=== PATIENT | female | born 1985 | race Caucasian/White ===

== ENCOUNTER 2016-07-17 22:00 | Emergency (ER) | payer OTHER ==
[2016-07-17 23:40] LABS: ARTERIAL BLD GAS O2 SATURATION 86.7 % (94-98); ARTERIAL BLOOD GAS BASE EXCESS 27.5 mmol/L (-2.0-3.0); ARTERIAL BLOOD GAS HCO3 59.2 mmol/L (22-26); ARTERIAL BLOOD GAS pH 7.34 (7.35-7.45)
[2016-07-17 23:41] LABS: ARTERIAL BLOOD GAS PCO2 112.8 mmHg (32-45)
[2016-07-18 00:02] LABS: ALBUMIN 4.1 gm/dL (3.4-5.0); ALKALINE PHOSPHATASE 60 U/L (50-136); ALT/SGPT 45 U/L (3.5-33.9); AST/SGOT 44 U/L (7.04-26.96); BILIRUBIN,TOTAL 0.28 mg/dL (0.0-1.0); BLOOD UREA NITROGEN 13 mg/dL (7-18); CALCIUM 9.4 mg/dL (8.7-10.7); CREATINE KINASE 56 U/L (21-215); CREATININE < 0.5 mg/dL (0.6-1.3); GLUCOSE,RANDOM 125 mg/dL (70-99); POTASSIUM 4.3 mmol/L (3.5-5.1); SODIUM 143 mmol/L (136-145); TOTAL PROTEIN 6.8 gm/dL (6.4-8.2)
[2016-07-18 00:11] LABS: CARBON DIOXIDE > 50 mmol/L (21-32)
[2016-07-18 01:21] LABS: BASO % 0.1 % (0.1-1.2); EOS # 0.2 10_X3_uL (0.0-0.4); EOS % 2.4 % (0.7-5.8); GRAN # 7.2 10_X3_uL (1.6-6.1); GRAN % 83.8 % (34.0-71.1); HEMATOCRIT 42.4 % (34-45); HEMOGLOBIN 11.9 g/dL (11.2-15.7); LYMPH # 0.5 10_X3_uL (1.2-3.7); LYMPH % 5.5 % (19.3-51.7); MEAN CORPUSCULAR HEMOGLOBIN 30.2 pg (27.0-33.0); MEAN CORPUSCULAR HGB CONC 28.1 g/dL (32.0-36.0); MEAN CORPUSCULAR VOLUME 107.6 fL (79-95); MONO # 0.7 10_X3_uL (0.2-0.9); MONO % 8.2 % (4.7-12.5); PLATELET COUNT 109 x10_3/uL (182-369); RED BLOOD COUNT 3.94 x10_6/uL (3.9-5.2); RED CELL DISTRIBUTION WIDTH 13.7 % (11.7-14.4); WHITE BLOOD COUNT 8.6 x10_3/uL (4.0-10.0)
[2016-07-18 01:27] LABS: ARTERIAL BLD GAS O2 SATURATION 90.4 % (94-98); ARTERIAL BLOOD GAS BASE EXCESS 25.9 mmol/L (-2.0-3.0); ARTERIAL BLOOD GAS HCO3 56.9 mmol/L (22-26); ARTERIAL BLOOD GAS pH 7.34 (7.35-7.45)
[2016-07-18 01:28] LABS: ARTERIAL BLOOD GAS PCO2 108.4 mmHg (32-45)
== END 2016-07-18 05:28 | disposition short-term general hospital (02) ==
LOC: ER 22:00
PROVIDERS: Emergency Medicine
DX: R06.89 Other abnormalities of breathing (principal); J84.81 Lymphangioleiomyomatosis; R00.0 Tachycardia, unspecified; E11.9 Type 2 diabetes mellitus without complications; F17.210 Nicotine dependence, cigarettes, uncomplicated; Z88.6 Allergy status to analgesic agent; Z88.8 Allergy status to other drugs, medicaments and biological substances
CPT/HCPCS: 36415; 36600; 71010; 80053; 82550; 82553; 82803; 82962; 85025; 93005; 94640; 94660; 94664; 96365; 96367; 96375; 99070; 99285-25